=== PATIENT | male | born 1995 | race Caucasian/White ===

== ENCOUNTER 2017-12-31 14:09 | Emergency (ER) | payer BC ==
[~2017-12-31] VITALS: Ht 175.3 cm; Wt 73.5 kg
[2017-12-31 14:14] VITALS: TEMP 37.1; Ht 175.3 cm; Wt 73.5 kg
[2017-12-31] MEDS ORDERED: KETOROLAC TROMETHAMINE 30 MG/ML VIAL IV STA (14:23)
[2017-12-31] MEDS ORDERED: SODIUM CHLORIDE 0.9% 1000ML 1,000 ML IV STA (14:23)
[2017-12-31 14:57] LABS: BASO % 0.1 %; BASO ABS # 0.01 K/uL (0-0.2); EOS % 4.3 %; HEMATOCRIT 43.8 % (42-52); HEMOGLOBIN 15.5 g/dL (14.0-18.0); IG# 0.01 K/uL (0.00-0.02); LYMPH % 28.7 %; LYMPH ABS # 2.01 K/uL (1.2-3.4); MEAN CELL VOLUME 82.2 fL (80-100); MEAN CORPUSCULAR HEMOGLOBIN 29.1 pg (25-34); MEAN CORPUSCULAR HGB CONC 35.4 g/dl (32-36); MONO % 4.6 %; MONO ABS # 0.32 K/uL (0.11-0.59); NEUT % 62.2 %; NEUT ABS # 4.35 K/uL (1.4-6.5); PLATELET COUNT 233 K/uL (130-400); RED CELL DISTRIBUTION WIDTH CV 12.6 % (11.5-14.5)
--- NOTE | 2017-12-31 15:01 | DIAGNOSTIC IMAGING REPORT ---
CHEST ONE VIEW PORTABLE HISTORY: chills COMPARISON: None. FINDINGS: The lungs are clear. Cardiac silhouette is normal in size. No pleural effusions. No pneumothorax. IMPRESSION: No acute process. Electronically signed by: Vijay Barnett M.D. 12/31/2017 3:00 PM Dictated Date/Time: 12/31/2017 2:59 PM
[2017-12-31 15:18] LABS: ALBUMIN 4.9 gm/dl (3.4-5.0); CALCIUM 9.1 mg/dl (8.5-10.1); CREATININE 1.34 mg/dl (0.60-1.40); POTASSIUM 4.2 mmol/L (3.5-5.1)
[2017-12-31 15:21] LABS: TOTAL PROTEIN 8.1 gm/dl (6.4-8.2)
[2017-12-31 15:40] LABS: INFLUENZA B ANTIGEN Neg for Influ B (NEG)
[2017-12-31 17:21] VITALS: BP 124/73; PULSE 58; O2SAT 99
--- NOTE | 2017-12-31 20:51 | EMERGENCY ROOM VISIT NOTE ---
History Report prepared by Scribe: Essie Levi Under the Supervision of: Dr. Viet Gentile D.O. First contact with patient: 14:17 Chief Complaint: OTHER COMPLAINT Stated Complaint: SEVERE SPINE PAIN, CHILLS, FEVER History of Present Illness The patient is a 22 year old male who presents to the Emergency Room with complaints of persistent flu like symptoms. He reports he woke up this morning feeling "under the weather", complaining of rhinorrhea, the chills and congestion. He also admits to a dry cough which started this morning as well with his symptoms. He is playing in a sports tournament this weekend and had to put on a sweatshirt in the 80 degree weather because of the chills and "feeling febrile". He did not take his temperature. His spine and neck started to hurt while playing, so he decided to stop and come to the ED. He rates his spinal pain as a 5/10 in severity and reports Tylenol provided minimal relief. The patient admits his roommate and girlfriend have been sick with flu like symptoms recently. He states he has no chronic medical problems. The patient denies any IV drug use, history of cancer or recent injections in his back. The patient denies any headache, change in vision, sore throat, chest pain, shortness of breath, nausea, vomiting, diarrhea, pain with urination, and melena. Source of History: patient Onset: earlier this morning Position: other (global) Timing: other (persistent) Associated Symptoms: + fevers, + chills, + neck pain, + back pain, No headache, No sorethroat, No chest pain, No SOB, No nausea, No vomiting, No melena, No diarrhea, No urinary symptoms Review of Systems See HPI for pertinent positives & negatives. A total of 10 systems reviewed and were otherwise negative. Past Medical & Surgical Medical Problems: (1) Seasonal allergies Family History Cancer Hypertension Kidney disease Kidney stones Social History Smoking Status: Never Smoker Alcohol Use: occasionally Drug Use: none Marital Status: in relationship Housing Status: lives with roommate Occupation Status: student Current/Historical Medications No Active Prescriptions or Reported Meds Allergies Coded Allergies: No Known Allergies (Unverified , 12/31/17) Physical Exam Vital Signs Date Time Temp Pulse Resp B/P (MAP) Pulse Ox O2 Delivery O2 Flow Rate FiO2 12/31/17 17:21 58 20 124/73 99 Room Air 12/31/17 15:11 57 18 140/72 98 Room Air 12/31/17 14:14 37.1 72 20 133/65 99 Room Air Physical Exam GENERAL: Sitting up in bed, alert, well appearing, well nourished, no distress, non-toxic EYE EXAM: normal conjunctiva. PERRL and EOM's grossly intact. OROPHARYNX: no exudate, no erythema, lips, buccal mucosa, and tongue normal and mucous membranes are moist EARS: TM's clear bilaterally. NECK: supple, no nuchal rigidity, no adenopathy, non-tender, negative Brudzinski LUNGS: Clear to auscultation. Normal chest wall mechanics HEART: no murmurs, S1 normal and S2 normal ABDOMEN: abdomen soft, non-tender, normo-active bowel sounds, no masses, no rebound or guarding. BACK: Back is symmetrical on inspection and there is no deformity, no midline tenderness, no CVA tenderness. SKIN: no rashes and no bruising UPPER EXTREMITIES: upper extremities are grossly normal. LOWER EXTREMITIES: No pitting edema. NEURO EXAM: Normal sensorium, cranial nerves II-XII grossly intact, normal speech, no gross weakness of arms, no gross weakness of legs. Gross sensation intact. Ambulates without difficulty. Medical Decision & Procedures ER Provider Diagnostic Interpretation: Radiology results as stated below per my review and the radiologist's interpretation: CHEST ONE VIEW PORTABLE HISTORY: chills COMPARISON: None. FINDINGS: The lungs are clear. Cardiac silhouette is normal in size. No pleural effusions. No pneumothorax. IMPRESSION: No acute process. Electronically signed by: Vijay Barnett M.D. 12/31/2017 3:00 PM Laboratory Results 12/31/17 14:40 Red Blood Count 5.33, Mean Corpuscular Volume 82.2, Mean Corpuscular Hemoglobin 29.1, Mean Corpuscular Hemoglobin Concent 35.4, Mean Platelet Volume 10.0, Neutrophils (%) (Auto) 62.2, Lymphocytes (%) (Auto) 28.7, Monocytes (%) (Auto) 4.6, Eosinophils (%) (Auto) 4.3, Basophils (%) (Auto) 0.1, Neutrophils # (Auto) 4.35, Lymphocytes # (Auto) 2.01, Monocytes # (Auto) 0.32, Eosinophils # (Auto) 0.30, Basophils # (Auto) 0.01 12/31/17 14:40 Test 12/31/17 14:40 12/31/17 15:15 White Blood Count 7.00 K/uL (4.8-10.8) Red Blood Count 5.33 M/uL (4.7-6.1) Hemoglobin 15.5 g/dL (14.0-18.0) Hematocrit 43.8 % (42-52) Mean Corpuscular Volume 82.2 fL (80-100) Mean Corpuscular Hemoglobin 29.1 pg (25-34) Mean Corpuscular Hemoglobin Concent 35.4 g/dl (32-36) Platelet Count 233 K/uL (130-400) Mean Platelet Volume 10.0 fL (7.4-10.4) Neutrophils (%) (Auto) 62.2 % Lymphocytes (%) (Auto) 28.7 % Monocytes (%) (Auto) 4.6 % Eosinophils (%) (Auto) 4.3 % Basophils (%) (Auto) 0.1 % Neutrophils # (Auto) 4.35 K/uL (1.4-6.5) Lymphocytes # (Auto) 2.01 K/uL (1.2-3.4) Monocytes # (Auto) 0.32 K/uL (0.11-0.59) Eosinophils # (Auto) 0.30 K/uL (0-0.5) Basophils # (Auto) 0.01 K/uL (0-0.2) RDW Standard Deviation 38.0 fL (36.4-46.3) RDW Coefficient of Variation 12.6 % (11.5-14.5) Immature Granulocyte % (Auto) 0.1 % Immature Granulocyte # (Auto) 0.01 K/uL (0.00-0.02) Anion Gap 6.0 mmol/L (3-11) Est Creatinine Clear Calc Drug Dose 87.2 ml/min Estimated GFR () 87.2 Estimated GFR (Non- 75.2 BUN/Creatinine Ratio 16.4 (10-20) Calcium Level 9.1 mg/dl (8.5-10.1) Total Bilirubin 0.5 mg/dl (0.2-1) Direct Bilirubin 0.1 mg/dl (0-0.2) Aspartate Amino Transf (AST/SGOT) 23 U/L (15-37) Alanine Aminotransferase (ALT/SGPT) 30 U/L (12-78) Alkaline Phosphatase 93 U/L (45-117) Total Protein 8.1 gm/dl (6.4-8.2) Albumin 4.9 gm/dl (3.4-5.0) Lipase 104 U/L (73-393) Influenza Type A Antigen Neg for Influ A (NEG) Influenza Type B Antigen Neg for Influ B (NEG) Urine Color YELLOW Urine Appearance CLEAR (CLEAR) Urine pH 5.0 (4.5-7.5) Urine Specific [place] 1.018 (1.000-1.030) Urine Protein NEG (NEG) Urine Glucose (UA) NEG (NEG) Urine Ketones NEG (NEG) Urine Occult Blood NEG (NEG) Urine Nitrite NEG (NEG) Urine Bilirubin NEG (NEG) Urine Urobilinogen NEG (NEG) Urine Leukocyte Esterase NEG (NEG) Urine WBC (Auto) 0 /hpf (0-5) Urine RBC (Auto) 0-4 /hpf (0-4) Urine Hyaline Casts (Auto) 0 /lpf (0-5) Urine Epithelial Cells (Auto) 0-5 /lpf (0-5) Urine Bacteria (Auto) NEG (NEG) Laboratory results per my review. Medications Administered Medications (Trade) Dose Ordered Sig/Ash Route Start Time Stop Time Status Last Admin Dose Admin Sodium Chloride 1,000 ml @ 999 mls/hr Q1H1M STAT IV 12/31/17 14:23 12/31/17 15:23 DC 12/31/17 14:52 999 MLS/HR Ketorolac Tromethamine (Toradol Inj) 30 mg NOW STAT IV 12/31/17 14:23 12/31/17 14:26 DC 12/31/17 14:52 30 MG ED Course ED COURSE: Vital signs were reviewed and showed normal vital signs. The patients medical record was reviewed The above diagnostic studies were performed and reviewed. ED treatments and interventions as stated above. 1419: The patient was evaluated in room C10. A complete history and physical examination was performed. 1423: Toradol 30 mg IV, NSS 1000 ml @ 999 mls/hr IV. 1550: I reevaluated the patient. He is feeling well and has no complaints. 1605: I discussed my recommendation the patient undergo a lumbar puncture procedure but he declined. 1615: Upon reevaluation, the patient is resting comfortably and feeling well. I discussed my findings with the patient and he understands and agrees with the treatment plan. Based on the patients age, coexisting illnesses, exam and lab findings the decision to treat as an outpatient was made. The patient remained stable while under my care. The patient appeared well at the time of discharge. Medical Decision Etiologies such as viral syndrome, otitis, pharyngitis, pneumonia, influenza, meningitis, urinary tract infection, sepsis, bacteremia, as well as others were entertained. Patient is a 22-year-old male who presents to ER referred in for possible meningitis sports med position. Patient notes that this morning started with a runny nose, cough, congestion. Throughout the day he developed a headache back and neck pain. He is referred in for further evaluation. No recorded fevers. He did feel hot and cold. CBC along with BMP, LFTs, bilirubin lipase is unremarkable. UA was negative. Influenza was negative. Chest x-ray unremarkable. Based on the patient's symptoms inform the family that I favor that this is likely a viral URI but cannot completely rule out meningitis. Did offer and recommend LP. And dad were at bedside. Risk and benefits were explained. Patient family preferred not to perform this at this time as they do favor that this is likely a viral URI. Another family member was at bedside who had a daughter with meningitis. They understood the severity. Patient was discharged to follow-up with PCP as an outpatient. Any worsening of symptoms he will return immediately to the closest ER. Discussed with Pt concerning signs and symptoms to watch out for. Pt was instructed to follow up with their PCP and discussed with the patient their option to return to the ED at anytime for persistent or worsening symptoms. The appropriate anticipatory guidance and out-patient management, including indications for return to the emergency department, were explained at length to the patient and understood. Medication Reconcilliation Current Medication List: was personally reviewed by me Blood Pressure Screening Patient's blood pressure: Normal blood pressure Blood pressure disposition: Did not require urgent referral Impression Primary Impression: URI, acute Additional Impressions: Chills Muscle ache Scribe Attestation The scribe's documentation has been prepared under my direction and personally reviewed by me in its entirety. I confirm that the note above accurately reflects all work, treatment, procedures, and medical decision making performed by me. Departure Information Dispostion Home / Self-Care Prescriptions No Active Prescriptions or Reported Meds Patient Instructions ED URI Viral, My [facility] Additional Instructions Please follow up with your primary care doctor with in the next 24 hours. Any worsening of your symptoms, please return to the ED immediately. This includes any fevers greater than 100.4, worsening pain, chest pain, shortness breath, persistent nausea, vomiting, unable to eat or drink, or any other concerning signs or symptoms from your standpoint. Please take Tylenol Motrin as needed for fevers. Any severe headaches, neck pain or changes symptoms please return immediately to the ER for an LP to rule out meningitis. Again he should be rechecked by your primary care doctor in 24 hours. Problem Qualifiers
== END 2017-12-31 17:47 | disposition home or self-care (01) ==
LOC: C.EDB 14:12 → C.EDC 17:47
DX: J06.9 Acute upper respiratory infection, unspecified (principal)